=== PATIENT | male | born 2005 | race Caucasian/White ===

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

== ENCOUNTER → 2023-01-21 11:05 | Outpatient (CLI) | payer OTHER, SELFPAY ==
[2023-01-21 11:36] LABS: COVID19 -Nasal RAPID Negative (Negative)
== END ==
PROVIDERS: Family Provider Family Medicine; PCP Pediatrics; Visit Provider Family Medicine
DX: R50.9 Fever, unspecified (principal); Z20.822 Contact with and (suspected) exposure to COVID-19
CPT/HCPCS: 87635

== ENCOUNTER 2023-12-10 11:27 | Emergency (ER) | payer OTHER, SELFPAY ==
[2023-12-10 11:55] VITALS: BP 124/76; PULSE 111; RESP 16; TEMP 36.6; O2SAT 98; BMI 25.8
--- NOTE | 2023-12-10 13:11 | DI.RAD.S_ITS ---
PROCEDURE: XR CHEST 2V INDICATIONS: chest pain TECHNIQUE: 2 views of the chest were acquired. COMPARISON: None. FINDINGS: Surgical changes and devices: None. Lungs and pleura: No dense consolidation or pleural effusion Mediastinum: Normal heart size Bones and chest wall: Un rim IMPRESSION: No acute radiographic abnormality. Dictated by: Floyd Trevino M.D. on 12/10/2023 at 14:02 Approved by: Floyd Trevino M.D. on 12/10/2023 at 14:02
[2023-12-10 16:59] VITALS: BP 133/70; PULSE 92; RESP 18; O2SAT 97
--- NOTE | 2023-12-10 18:19 | ED.CHESTPAIN ---
HPI - Chest Pain General Chief Complaint: Chest Pain Stated Complaint: Chest pain Time Seen by Provider: 12/10/23 13:11 Source: patient Mode of arrival: Ambulatory Limitations: no limitations History of Present Illness HPI narrative: Otherwise healthy 18-year-old male who is here for evaluation of intermittent episodes of chest discomfort that he states is a sharp pain located over the left side of his chest that lasts for seconds. It has been coming more frequent recently. Is having some nausea and dizziness occasionally as well. At the time my evaluation he was asymptomatic. No shortness of breath. No skin changes. Discomfort is not worse with palpation or movement. No vomiting. No fevers. Does not take anything for the symptoms prior to arrival. Related Data Home Medications Medication Instructions Recorded Confirmed fluticasone propionate 220 2 puff inhalation BID 07/27/22 10/21/23 mcg/actuation HFA aerosol inhaler pantoprazole 20 mg tablet,delayed 20 mg PO DAILY 07/27/22 10/21/23 release Allergies Allergy/AdvReac Type Severity Reaction Status Date / Time cefaclor [CEFACLOR] Allergy Unknown BROTHER Verified 12/10/23 11:59 AND SISTER ALLERGIC cefpodoxime [CEFPODOXIME] Allergy Unknown BROTHER Verified 12/10/23 11:59 AND SISTER ALLERGIC chlorprep Allergy Unknown Uncoded 12/10/23 11:59 Review of Systems Review of Systems ROS Unobtainable: All systems reviewed & are unremarkable except as noted in HPI and below Patient History Medical History Asthma, mild intermittent Social History Smoking Status: Never smoker Smoking Status: Never smoker Substance Use Type: does not use Exam Initial Vital Signs Initial Vital Signs: Vital Signs Temperature 98 F 12/10/23 11:55 Pulse Rate 111 H 12/10/23 11:55 Respiratory Rate 16 12/10/23 11:55 Blood Pressure 124/76 12/10/23 11:55 Pulse Oximetry 98 12/10/23 11:55 Oxygen Delivery Method Room Air 12/10/23 11:55 Const General: cooperative, comfortable and No ill appearing HENMT Head: normal to inspection and normocephalic Resp Effort & Inspection: normal respiratory effort Auscultation: clear to auscultation bilaterally Cardio Rate: regular rate Rhythm: regular rhythm GI Inspection: normal to inspection and non-distended Skin General: no rashes or lesions noted Neuro General: patient alert, patient awake, patient oriented x3 and moves all extremities Extrem General: capillary refill normal Course Orders Ordered: ED Orders 12/10/23 12:00 EKG-12 Lead Stat 12/10/23 13:11 Chest [XR chest 2V] Stat Vital Signs Vital signs: Vital Signs - 8 hr 12/10/23 18:32 Pulse Rate 77 Respiratory Rate 16 Blood Pressure 120/62 Pulse Oximetry 97 Oxygen Delivery Method Room Air MDM - Chest Pain Imaging Data Chest x-ray: Radiologist's Impression: PROCEDURE: XR CHEST 2V INDICATIONS: chest pain TECHNIQUE: 2 views of the chest were acquired. COMPARISON: None. FINDINGS: Surgical changes and devices: None. Lungs and pleura: No dense consolidation or pleural effusion Mediastinum: Normal heart size Bones and chest wall: Un rim IMPRESSION: No acute radiographic abnormality. ECG Data Attestation: I personally reviewed and interpreted this ECG as follows: Interpretation: Sinus tachycardia Ventricular rate 102 Normal axis Normal QRS Normal QTC No ST T wave changes MDM Narrative Medical decision making narrative: Patient is asymptomatic. EKG is unremarkable. I have low suspicion for pulmonary embolism despite his tachycardia because the patient states that the symptoms been going on for the past month. They are intermittent. They last for seconds and then completely resolved. This is not consistent with a pulmonary embolism. Low suspicion for ACS. His chest x-ray is unremarkable. No indication for antibiotics. His skin shows no signs of infection. Given his presentation I do have some concern that maybe he was having a transient arrhythmia. I recommended that they contact his primary doctor for follow-up to discuss the indications for a Holter monitor. Patient and his mother who is at bedside expressed understanding and agreement this plan. Discharge Plan Departure Patient Disposition: Home Clinical Impression: Atypical chest pain Instructions: DI for Atypical Chest Pain Activity Restrictions/Additional Instructions: I do recommend that you contact your primary provider's office to discuss the indications for a Holter monitor. Continue to take all medications as directed. Return to the emergency department for new or worsening symptoms. Prescriptions: No Action pantoprazole 20 mg tablet,delayed release (DR/EC) 20 mg PO DAILY fluticasone propionate 220 mcg/actuation HFA aerosol inhaler 2 puff inhalation BID Referrals: Izabel Anton DO [Primary Care Provider] - Stand Alone Forms: Patient Portal/API
[2023-12-10 18:32] VITALS: BP 120/62; PULSE 77; RESP 16; O2SAT 97
== END 2023-12-10 18:47 | disposition home or self-care (01) ==
PROVIDERS: Emergency Provider Emergency Medicine; Family Provider Family Medicine; PCP Pediatrics
DX: R07.89 Other chest pain (principal)
CPT/HCPCS: 71046; 93005; 99281; 99284

== ENCOUNTER → 2024-01-06 10:53 | Outpatient (CLI) | payer OTHER, SELFPAY | LOC: CAR 10:53 | PROVIDERS: Family Provider Nurse Practitioner Family; PCP Nurse Practitioner Family; Referring Provider Nurse Practitioner Family; Visit Provider Nurse Practitioner Family | DX: R00.0 Tachycardia, unspecified (principal); R07.9 Chest pain, unspecified | CPT/HCPCS: 93242 ==

== ENCOUNTER → 2024-01-24 13:53 | Outpatient (CLI) | payer OTHER, SELFPAY ==
[2024-01-24 15:40] LABS: Add Manual Diff / Slide Review NO; Basophils Absolute Auto 200 /uL (0-100); Basophils Percent Auto 2.6 % (0-2); Eosinophils Absolute Auto 200 /uL (0-450); Eosinophils Percent Auto 2.5 % (2-4); Hematocrit 44.8 % (41-53); Hemoglobin 15.4 g/dL (13.5-17.5); Lymphocytes Absolute Auto 2200 /uL (1100-4500); Lymphocytes Percent Auto 24.7 % (25-40); Mean Corpuscular HGB Conc 34.4 % (30-36); Mean Corpuscular Hemoglobin 29.2 PG (26-34); Mean Corpuscular Volume 84.9 fL (80-100); Monocytes Absolute Auto 900 /uL (0-900); Monocytes Percent Auto 9.7 % (3-14); Neutrophils Absolute Auto 5400 /uL (1500-7000); Neutrophils Percent Auto 60.5 % (50-75); Platelet Count 290 X10^3/uL (150-400); Red Blood Cell Count 5.27 X10^6/uL (4.5-5.9); Red Cell Distribution Width 13.1 % (11.6-14.8); White Blood Cell Count 8.9 X10^3/uL (4.5-11.0)
[2024-01-24 16:05] LABS: BUN Creatinine Ratio 13.2 (6-22); Blood Urea Nitrogen 12 mg/dL (9-20); Calcium 9.7 mg/dL (8.4-10.2); Carbon Dioxide 25 mmol/L (22-32); Chloride 104 mmol/L (98-107); Estimated Glomerular Filt Rate > 60 mL/min (>60); Glucose 92 mg/dL (70-100); HEMOLYSIS < 15 (0-50); Potassium 4.7 mmol/L (3.4-5.1); Sodium 140 mmol/L (137-145)
[2024-01-24 16:27] LABS: TSH w/ Reflex to FT4 1.37 uIU/mL (0.47-4.68)
[2024-01-24 16:53] LABS: Vitamin B12 419 pg/mL (239-931)
[2024-01-24 21:25] LABS: Hemoglobin A1C% w Est Avg Glu 5.3 % (4.0-6.0)
== END ==
LOC: LAB 13:54
PROVIDERS: Family Provider Nurse Practitioner Family; PCP Nurse Practitioner Family; Referring Provider Nurse Practitioner Family; Visit Provider Nurse Practitioner Family
DX: R00.2 Palpitations (principal); R61 Generalized hyperhidrosis; Z68.28 Body mass index [BMI] 28.0-28.9, adult
CPT/HCPCS: 36415; 80048; 82607; 83036; 84443; 85025

== ENCOUNTER → 2024-05-08 15:16 | Outpatient (CLI) | payer OTHER, SELFPAY ==
--- NOTE | 2024-05-08 18:42 | DI.NM.S_ITS ---
DATE OF SERVICE: 05/08/2024 EXERCISE TREADMILL STRESS TEST PROCEDURE: Exercise treadmill stress test without imaging. ORDERING PROVIDER: COCO Smith. INDICATIONS: The patient is a 18-year-old male with fleeting, atypical chest discomfort and palpitations. FINDINGS: 1. The patient was able to exercise for 9 minutes 51 seconds on a standard Yonathan protocol suggesting moderately reduced exercise capacity with an MILY of +36%. 2. He had a normal heart rate and blood pressure response to exercise, achieving a maximum heart rate of 195 bpm (98% of his predicted maximum). 3. He had no chest discomfort or other anginal symptoms. He had moderate exertional dyspnea with exercise. 4. His resting ECG shows sinus rhythm with normal ST segments. There are no significant ST-segment shifts or arrhythmias with stress. IMPRESSION: 1. Normal exercise treadmill stress test for ischemia. 2. Moderately reduced exercise capacity without angina or arrhythmias. Emanuel John - HEVER/sunny/SHWETA doc#: [id number]/job#: [id number] dd: 05/08/2024 17:01:00 dt: 05/08/2024 18:25:00 DICTATING /COPIES TO: Emanuel Bueno MD; COCO Smith COPIES MELYSSAE: GEETHA; ; COCO Smith
== END ==
PROVIDERS: Family Provider Nurse Practitioner Family; PCP Nurse Practitioner Family; Referring Provider Nurse Practitioner Family; Visit Provider Nurse Practitioner Family
DX: R00.2 Palpitations (principal); R61 Generalized hyperhidrosis
CPT/HCPCS: 93017

== ENCOUNTER → 2024-06-02 13:43 | Outpatient (CLI) | payer OTHER, SELFPAY ==
--- NOTE | 2024-06-02 13:45 | DI.ECHO.S_ITS ---
[facility] : : [id number] : : [place] : : [id number] : : Phone: [phone] Echocardiogram Report + + :Name: ROLANDA MALDONADO Study Date: 06/02/2024 Height: 70 in : :[facility] ReadingLocation: Weight: 180 lb : : Gender: Male BSA: 2.0 m2 : :: 2005 Age: 18 yrs BP: 120/80 mmHg: :Reason For Study: PALPITATIONS : :Ordering Physician: ASTON, : :ANNMARIE Performed By: Kwame Delaney : :Referring: ANNMARIE CLANCY : + + Interpretation Summary 1. Mildly compromised LV contractility. EF of 40-45%. No WMA. No LVH. Normal diastolic function. 2. Mildly compromised RV contractility. 3. Normal chamber sizes 4. No significant valvular abnormalities. 5. No obvious intracardiac shunts. 6. No obvious intracardiac masses/thrombi. 7. No hemodynamically significant pericardial effusion present. 8. Low right sided filling pressures. Conclusion: Mild biventricular systolic dysfunction without significant valvular nor structural abnormalities. Procedure: A two-dimensional transthoracic echocardiogram with color flow and Doppler was performed. The study quality was technically good. There is no prior echocardiogram noted for this patient. The patient was in normal sinus rhythm during the exam. Left Ventricle: The left ventricle is normal in size. There is normal left ventricular wall thickness. There is no ventricular septal defect visualized. The ejection fraction is estimated to be 40-45%. Left ventricular systolic function is mildly reduced. There are no focal wall motion abnormalities. Diastolic parameters suggest probable normal left ventricular diastolic function and normal filling pressures. Right Ventricle: The right ventricle is normal in size and function. Right ventricular systolic function is mildly reduced. Atria: The left atrial size is normal. Right atrial size is normal. There is no Doppler evidence for an interatrial shunt. Mitral Valve: The mitral valve is normal in structure and function. There is trace mitral regurgitation. Aortic Valve: The aortic valve is trileaflet. The aortic valve opens well. No aortic regurgitation is present. Tricuspid Valve: The tricuspid valve is normal in structure and function. There is a trace or physiologic amount of tricuspid regurgitation. The right ventricular systolic pressure is estimated to be at least 19 mmHg based on an estimated right atrial pressure of 3 mm Hg. Pulmonic Valve: The pulmonic valve is normal in structure and function. There is trace pulmonic regurgitation. Great Vessels: The aortic root is normal size. The dimensions of the ascending aorta are normal. The pulmonary artery is normal size. The IVC is of normal diameter and collapses greater than 50% with a sniff. This suggests a low right atrial pressure of 3 mm Hg. Pericardium/ Pleura There is no pericardial effusion. There is no pleural effusion. MMode/2D Measurements & Calculations LVIDd: 5.1 cm LVOT diam: 2.3 cm LVIDs: 4.0 cm Ao root diam: 3.2 cm FS: 21.3 % asc Aorta Diam: 2.9 cm EPSS: 0.66 cm IVSd: 0.68 cm LVPWd: 0.71 cm LV bella. diameter/BSA (cm/m^2): 2.5 LV sys. diameter/BSA (cm/m^2): 2.0 LA A2 area: 15.8 cm2 RA long axis: 4.0 cm LA A4 area: 13.3 cm2 RA area: 12.2 cm2 LA length (vol): 4.6 cm RA vol: 31.0 ml LA vol: 38.6 ml RA : 15.6 ml/m2 LA vol index: 19.3 ml/m2 IVC diam: 1.6 cm RVD1 (basal): 3.2 cm RVD2 (mid): 3.4 cm TAPSE: 1.7 cm Doppler Measurements & Calculations Ao V2 max: 107.9 cm/sec LVOT Max Edy: 88.8 cm/sec Ao V2 mean: 76.4 cm/sec LV V1 max P.2 mmHg Ao max P.7 mmHg LV V1 VTI: 17.3 cm Ao mean P.6 mmHg VALENTIN(I,D): 3.4 cm2 Ao V2 VTI: 21.8 cm VALENTIN(V,D): 3.5 cm2 sev ratio: 0.79 VALENTIN indexed to BSA (cm^2/m^2): 1.7 MV E max edy: 55.6 cm/sec TR max edy: 197.4 cm/sec MV A max edy: 41.6 cm/sec TR max P.6 mmHg MV E/A: 1.3 PA V2 max: 64.3 cm/sec Med Peak E' Edy: 10.4 cm/sec PA V2 mean: 49.6 cm/sec E/E' med: 5.4 PA mean P.0 mmHg Lat Peak E' Edy: 11.0 cm/sec PA pr(Accel): 34.5 mmHg E/E' lat: 5.1 E/e' average: 5.2 MV dec time: 0.24 sec SV(LVOT): 73.9 ml Reading Physician:
== END ==
LOC: ECHO 13:44
PROVIDERS: Family Provider Nurse Practitioner Family; PCP Nurse Practitioner Family; Referring Provider Nurse Practitioner Family; Visit Provider Nurse Practitioner Family
DX: R00.2 Palpitations (principal); R61 Generalized hyperhidrosis
CPT/HCPCS: 93306